=== PATIENT | male | born 1965 | race Caucasian/White ===

== ENCOUNTER 2016-08-02 11:33 | Emergency (ER) | payer OTHER ==
[~2016-08-02] VITALS: Ht 180.3 cm; Wt 113.6 kg
[~2016-08-02 11:33] MED LIST: DONNATAL 10 ML10 ML PO; FLAGYL500 MG PO; IMODIUM A-D2 M1 PO; LEVAQUIN 5500 MG/TA1 PO; LISINOPRIL; PRINIVIL10 MG PO; ST. JOSEPH81 M1 PO; ULTRAM 50MG TAB50 MG PO; ZARTAN500 MG PO; ZOCOR 20MG20 MG PO; ZOCOR5 MG PO; ZOFRAN4 M1 PO
[2016-08-02 11:34] VITALS: BP 127/81; TEMP 98.1
[2016-08-02] MEDS ORDERED: NATURAL ODORLE400 MG PO (11:37)
[2016-08-02 12:20] LABS: BASO # 0.1 (0.0-0.2); BASO % 0.6 % (0.0-2.0); EOS # 0.2 (0.0-0.7); EOS % 1.8 % (0-4.0); GRAN # 5.7 (1.4-6.5); GRAN % 59.5 % (42.2-75.2); HEMATOCRIT 44.9 % (42.0-52.0); HEMOGLOBIN 15.1 g/dl (13.5-18.0); LYMPH # 2.7 (1.2-3.4); LYMPH % 27.9 % (20.0-51.0); MEAN CELL VOLUME 92 fl (80.0-100.0); MEAN CORPUSCULAR HEMOGLOBIN 31 pg (27.0-31.0); MEAN CORPUSCULAR HGB CONC 34 g/dl (33.0-37.0); MONO # 0.9 (0.1-0.6); MONO % 9.8 % (1.7-9.3); PLATELET COUNT 177 K/mm3 (130-400); REDCELL DISTRIBUTION WIDTH-CV 13.2 % (11.5-14.5); WHITE BLOOD COUNT 9.5 K/mm3 (4.8-10.8)
[2016-08-02 12:30] LABS: ADJUSTED CALCIUM 9.2 mg/dL (8.4-10.2); ALBUMIN 4.5 gm/dL (3.5-5.0); BILIRUBIN,TOTAL 0.7 mg/dL (0.0-1.0); CALCIUM 9.6 mg/dL (8.4-10.2); CREATININE, serum 1.17 mg/dL (0.66-1.25); POTASSIUM 4.2 mmol/L (3.4-5.0); TOTAL PROTEIN 7.6 gm/dL (6.4-8.2)
[2016-08-02 12:47] LABS: PARTIAL THROMBOPLASTIN TIME 35.7 SECONDS (26.0-37.0)
[2016-08-02 13:00] VITALS: PULSE 88
== END 2016-08-02 14:21 | disposition home or self-care (01) ==
LOC: COL.ER 11:33
PROVIDERS: Emergency Medicine
DX: K92.2 Gastrointestinal hemorrhage, unspecified (principal); I10 Essential (primary) hypertension; F17.210 Nicotine dependence, cigarettes, uncomplicated

== ENCOUNTER → 2017-08-22 | Outpatient (CLI) | payer OTHER ==
[~2017-08-22] MED LIST changes: +NATURAL ODORLE400 MG PO
== END ==
LOC: COL.RAD 07:50
DX: K85.90 Acute pancreatitis without necrosis or infection, unspecified (principal); R74.8 Abnormal levels of other serum enzymes; K63.5 Polyp of colon; R07.89 Other chest pain
CPT/HCPCS: A9537

== ENCOUNTER 2019-10-01 07:18 | Emergency (ER) | payer OTHER ==
[~2019-10-01] VITALS: Ht 180.3 cm; Wt 113.6 kg
[2019-10-01 07:21] VITALS: TEMP 97.6
[2019-10-01] MEDS ORDERED: GLUCOPHAGE500 MG/TAB PO (07:26)
[2019-10-01] MEDS ORDERED: AMOXICILLIN 8751 TAB PO (07:44)
[2019-10-01 07:58] LABS: BASO # 0.1 (0.0-0.2); BASO % 0.4 % (0.0-2.0); EOS # 0.2 (0.0-0.7); EOS % 1.3 % (0-4.0); GRAN # 7.9 (1.4-6.5); GRAN % 69.5 % (42.2-75.2); HEMATOCRIT 45.3 % (42.0-52.0); HEMOGLOBIN 14.9 g/dl (13.5-18.0); LYMPH # 2.3 (1.2-3.4); LYMPH % 19.9 % (20.0-51.0); MEAN CELL VOLUME 94 fl (80.0-100.0); MEAN CORPUSCULAR HEMOGLOBIN 31 pg (27.0-31.0); MEAN CORPUSCULAR HGB CONC 33 g/dl (33.0-37.0); MEAN PLATELET VOLUME 11.3 fl (7.4-10.4); MONO % 8.6 % (1.7-9.3); PLATELET COUNT 163 K/mm3 (130-400); REDCELL DISTRIBUTION WIDTH-CV 13.2 % (11.5-14.5)
[2019-10-01 08:04] LABS: ALBUMIN 4.5 gm/dL (3.5-5.0); BILIRUBIN,TOTAL 0.5 mg/dL (0.0-1.0); C-REACTIVE PROTEIN 1.2 mg/dL (0.0-0.9); CALCIUM 9.7 mg/dL (8.4-10.2); CREATININE, serum 1.16 (0.66-1.25); POTASSIUM 4.5 mmol/L (3.4-5.0); TOTAL PROTEIN 7.7 gm/dL (6.4-8.2)
[2019-10-01 08:40] VITALS: BP 109/75; PULSE 72
== END 2019-10-01 09:13 | disposition home or self-care (01) ==
LOC: COL.ER 07:18
PROVIDERS: Emergency Medicine
DX: R10.31 Right lower quadrant pain (principal); R10.32 Left lower quadrant pain; I10 Essential (primary) hypertension; E78.5 Hyperlipidemia, unspecified; F17.210 Nicotine dependence, cigarettes, uncomplicated; Z79.84 Long term (current) use of oral hypoglycemic drugs
CPT/HCPCS: J2543

== ENCOUNTER 2020-03-03 11:45 | Emergency (ER) | payer OTHER ==
[~2020-03-03] VITALS: Ht 180.3 cm; Wt 113.6 kg
[~2020-03-03 11:45] MED LIST changes: +AMOXICILLIN 8751 TAB PO; +GLUCOPHAGE500 MG/TAB PO
[2020-03-03 11:58] VITALS: TEMP 98
[2020-03-03] MEDS ORDERED: ADVIL200 MG PO (12:07)
[2020-03-03] MEDS ORDERED: TOPROL XL 25MG25 MG (12:08)
[2020-03-03 12:34] VITALS: BP 125/59; PULSE 62
== END 2020-03-03 12:35 | disposition home or self-care (01) ==
LOC: COL.ER 11:45
DX: S05.01XA Injury of conjunctiva and corneal abrasion without foreign body, right eye, initial encounter (principal); F17.200 Nicotine dependence, unspecified, uncomplicated; Z79.84 Long term (current) use of oral hypoglycemic drugs; X58.XXXA Exposure to other specified factors, initial encounter; Y23 Rifle, shotgun and larger firearm discharge, undetermined intent

== ENCOUNTER 2020-03-16 07:46 | Day surgery (SDC) | payer OTHER ==
[~2020-03-16] VITALS: Ht 180.3 cm; Wt 114.7 kg
[2020-03-16] VITALS (254 sets, daily range): BP systolic 99–140; BP diastolic 64–96; PULSE 55–72; TEMP 98–98.6; O2SAT 93–100
[~2020-03-16 07:46] MED LIST changes: +ADVIL200 MG PO; -PRINIVIL10 MG PO; +PRINIVIL20 MG PO; +TOPROL XL 25MG25 MG PO
[2020-03-16] MEDS ORDERED: ASPIRIN E.C. 8181 MG PO (08:57)
[2020-03-16] MEDS ORDERED: OSTEO-BI-FLEX 21 TAB PO (08:58)
[2020-03-16] MEDS ORDERED: NITROSTAT0.4 MG/TAB SL (08:59)
[2020-03-16 09:40] LABS: HEMATOCRIT 44.5 % (42.0-52.0); HEMOGLOBIN 14.5 g/dl (13.5-18.0); MEAN CELL VOLUME 93 fl (80.0-100.0); MEAN CORPUSCULAR HEMOGLOBIN 30 pg (27.0-31.0); MEAN CORPUSCULAR HGB CONC 33 g/dl (33.0-37.0); MEAN PLATELET VOLUME 10.7 fl (7.4-10.4); PLATELET COUNT 186 K/mm3 (130-400); REDCELL DISTRIBUTION WIDTH-CV 13.3 % (11.5-14.5)
[2020-03-16 09:44] LABS: PROTHROMBIN TIME 11.4 SECONDS (9.7-12.8)
[2020-03-16 09:47] LABS: PARTIAL THROMBOPLASTIN TIME 34.3 SECONDS (26.0-37.0)
--- NOTE | 2020-03-16 10:29 | NUR ---
SEE MERGE DOCUMENTATION FOR MEDICATION ADMINISTRATION AND INTRA/POST PROCEDURE SEDATION ASSESSMETNS.
[2020-03-16 10:53] LABS: CALCIUM 9.2 mg/dL (8.4-10.2); CREATININE, serum 1.19 (0.66-1.25); POTASSIUM 4.6 mmol/L (3.4-5.0)
--- NOTE | 2020-03-16 12:05 | NUR ---
Pt reports chest pain he was experiencing during cath procedure is improving. Now rates pain at 2/10. Tele box has been applied as monitor in room will not carry over to telephone information supervisor desk. Pt speaking with his on the phone. Call light in reach.
--- NOTE | 2020-03-16 12:45 | NUR ---
Bruising noted proximal to TR band with c/o from pt of area feeling tight. Manual pressure held to area, and Marely clinical laboratory technician RN in to evaluate area. With manual pressure area remains soft to palpation. Will continue to monitor closely. No further c/o chest pain from pt.
--- NOTE | 2020-03-16 14:50 | NUR ---
Pt c/o increased pain to rt wrist proximal to TR band. Site remains soft to palpation. Bruising is noted, but is unchanged since pt's return from manager lab. [employer] farm laborer staff KEELEY Yap and martha Blackburn in room to evaluate. 2ml of air is removed from band, and pt reports relief. Bruising outlines marked. Pt denies further needs.
--- NOTE | 2020-03-16 15:50 | NUR ---
Report given to KEELEY Duran. Pt taken with personal belongings to ICU 8.
--- NOTE | 2020-03-16 20:00 | NUR ---
Assessment complete. Pt is AXO X3, denies having any pain at this time. Breathing is even and unlabored on room air. LA IV flushes easily and remains free of complications. R radial heart cath site has TR band deflated but still in place. Bruising noted to site with old hematoma outlined. Site is now soft and does not appear to have any growth noted. Pt assisted to the restroom and back to bed at this time and he denies further needs. Call light within reach, will continue to monitor.
[2020-03-17] VITALS (308 sets, daily range): BP systolic 85–122; BP diastolic 59–83; PULSE 55–69; TEMP 97.7–98.7; O2SAT 93–100
[2020-03-17 05:03] LABS: BASO # 0.1 (0.0-0.2); BASO % 0.6 % (0.0-2.0); EOS # 0.1 (0.0-0.7); EOS % 1.6 % (0-4.0); GRAN % 66.9 % (42.2-75.2); HEMATOCRIT 43.7 % (42.0-52.0); HEMOGLOBIN 14.4 g/dl (13.5-18.0); LYMPH # 1.8 (1.2-3.4); LYMPH % 20.7 % (20.0-51.0); MEAN CELL VOLUME 92 fl (80.0-100.0); MEAN CORPUSCULAR HEMOGLOBIN 30 pg (27.0-31.0); MEAN CORPUSCULAR HGB CONC 33 g/dl (33.0-37.0); MEAN PLATELET VOLUME 10.4 fl (7.4-10.4); MONO # 0.9 (0.1-0.6); MONO % 9.8 % (1.7-9.3); PLATELET COUNT 173 K/mm3 (130-400); RED BLOOD COUNT 4.76 M/mm3 (4.20-5.60); REDCELL DISTRIBUTION WIDTH-CV 13.4 % (11.5-14.5)
[2020-03-17 05:13] LABS: CALCIUM 9.3 mg/dL (8.4-10.2); CREATININE, serum 1.1 (0.66-1.25); POTASSIUM 4.2 mmol/L (3.4-5.0)
[2020-03-17] MEDS ORDERED: BRILINTA90 MG PO (09:24)
[2020-03-17] MEDS ORDERED: LIPITOR 80MG80 MG PO (09:24)
--- NOTE | 2020-03-17 10:51 | NUR ---
PT ALERT/ORIENTED X4. DENIES CP THIS MORNING. PT GIVEN DISCHARGE INSTRUCTIONS. VERBALIZES UNDERSTANDING. DENIES FURTHER QUESTIONS. PT GIVEN FOLLOW UP INFORMATION AND INSTRUCTED TO [facility] PRESCRIPTIONS FROM [facility] IN [place]. VSS. IV REMOVED. PT AMBULATES WITH STEADY GAIT TO EMERGENCY ENTRANCE. REFUSES W/C. ESCORTED PT TO EMERGENCY ENTRANCE. PT'S AT ENTRANCE TO TRANSPORT HOME.
== END 2020-03-17 10:50 | disposition home or self-care (01) ==
LOC: COL.CAR 07:46 → ICU 16:38 → COL.CAR 03-17 10:50
PROVIDERS: Internal Medicine Cardiovascular Disease
DX: I25.110 Atherosclerotic heart disease of native coronary artery with unstable angina pectoris (principal); Z95.5 Presence of coronary angioplasty implant and graft; E78.5 Hyperlipidemia, unspecified; I10 Essential (primary) hypertension; F17.210 Nicotine dependence, cigarettes, uncomplicated; E11.9 Type 2 diabetes mellitus without complications; Z79.82 Long term (current) use of aspirin; Z79.84 Long term (current) use of oral hypoglycemic drugs
CPT/HCPCS: OP; C1725; C1769; C1874; C1887; C9600; J0583; J1644; J2250; J3010

== ENCOUNTER 2020-05-24 17:21 | Outpatient (RCR) | payer OTHER ==
[~2020-05-24 17:21] MED LIST changes: +ASPIRIN E.C. 8181 MG PO; +BRILINTA90 MG PO; +LIPITOR 80MG80 MG PO; +NITROSTAT0.4 MG/TAB SL; +OSTEO-BI-FLEX 21 TAB PO
== END 2020-05-31 06:06 | disposition home or self-care (01) ==
LOC: COL.CR 17:21
DX: Z48.812 Encounter for surgical aftercare following surgery on the circulatory system (principal); Z95.5 Presence of coronary angioplasty implant and graft

== ENCOUNTER 2020-12-16 15:42 | Emergency (ER) | payer OTHER ==
[~2020-12-16] VITALS: Ht 180.3 cm; Wt 113.6 kg
[2020-12-16 15:52] VITALS: TEMP 98
[2020-12-16 16:32] LABS: BASO # 0.1 K/mm3 (0.0-0.2); BASO % 0.7 % (0.0-2.0); EOS # 0.1 K/mm3 (0.0-0.7); EOS % 1.5 % (0-4.0); GRAN # 5.1 K/mm3 (1.4-6.5); GRAN % 60.5 % (42.2-75.2); HEMATOCRIT 44.2 % (42.0-52.0); HEMOGLOBIN 14.5 g/dl (13.5-18.0); LYMPH # 2.1 K/mm3 (1.2-3.4); LYMPH % 25.3 % (20.0-51.0); MEAN CELL VOLUME 93 fl (80.0-100.0); MEAN CORPUSCULAR HEMOGLOBIN 31 pg (27.0-31.0); MEAN CORPUSCULAR HGB CONC 33 g/dl (33.0-37.0); MEAN PLATELET VOLUME 10.5 fl (7.4-10.4); MONO % 11.6 % (1.7-9.3); PLATELET COUNT 186 K/mm3 (130-400); RED BLOOD COUNT 4.74 M/mm3 (4.20-5.60); REDCELL DISTRIBUTION WIDTH-CV 12.9 % (11.5-14.5)
[2020-12-16 16:35] LABS: COLLECTION METHOD CLEAN CATCH
[2020-12-16 16:43] LABS: PH 5 (5-8); SQUAMOUS EPITHELIAL 0-2 /hpf; URINE APPEARANCE Clear; URINE BACTERIA None Seen /hpf; URINE BILIRUBIN Negative (NEGATIVE); URINE BLOOD Negative (NEGATIVE); URINE COLOR Yellow; URINE GLUCOSE Negative (NEGATIVE); URINE KETONE Negative (NEGATIVE); URINE LEUKOCYTE ESTERASE Negative (NEGATIVE); URINE NITRATE Negative (NEGATIVE); URINE PROTEIN(semi-quant) Negative (NEGATIVE); URINE RBC 0-2 /hpf; URINE UROBILINOGEN Negative (NEGATIVE)
[2020-12-16 16:50] LABS: BILIRUBIN,TOTAL 0.4 mg/dL (0.2-1.2); C-REACTIVE PROTEIN 0.1 mg/dL (0.00-0.50); CALCIUM 9.7 mg/dL (8.4-10.2); CREATININE, serum 1.24 mg/dL (0.72-1.25); POTASSIUM 4.4 mmol/L (3.5-4.5); TOTAL PROTEIN 7.1 gm/dL (6.2-8.1)
[2020-12-16] MEDS ORDERED: FLAGYL500 MG PO (17:16)
[2020-12-16] MEDS ORDERED: CIPRO 500MG TA500 MG PO (17:16)
[2020-12-16 17:36] VITALS: BP 127/82; PULSE 56
== END 2020-12-16 17:37 | disposition home or self-care (01) ==
LOC: COL.ER 15:42
PROVIDERS: Nurse Practitioner
DX: K57.92 Diverticulitis of intestine, part unspecified, without perforation or abscess without bleeding (principal); I25.2 Old myocardial infarction; Z79.82 Long term (current) use of aspirin

== ENCOUNTER 2023-12-17 15:05 | Emergency (ER) | payer OTHER ==
[~2023-12-17] VITALS: Ht 180.3 cm; Wt 109.1 kg
[~2023-12-17 15:05] MED LIST changes: +CEPHALEXIN500 M1 PO; +CIPRO 500MG TA500 MG PO
[2023-12-17 15:14] VITALS: TEMP 97.7
[2023-12-17 17:56] LABS: BASO # 0.1 K/mm3 (0.0-0.2); BASO % 0.6 % (0.0-2.0); EOS # 0.2 K/mm3 (0.0-0.7); EOS % 2.8 % (0.0-4.0); GRAN # 4.6 K/mm3 (1.4-6.5); GRAN % 57.8 % (42.2-75.2); HEMATOCRIT 42.2 % (42.0-52.0); HEMOGLOBIN 14.1 g/dl (13.5-18.0); LYMPH # 2.3 K/mm3 (1.2-3.4); LYMPH % 29.3 % (20.0-51.0); MEAN CELL VOLUME 94 fl (80.0-100.0); MEAN CORPUSCULAR HEMOGLOBIN 31 pg (27-31); MEAN CORPUSCULAR HGB CONC 33 g/dl (33.0-37.0); MEAN PLATELET VOLUME 10.8 fl (7.4-10.4); MONO # 0.7 K/mm3 (0.1-0.6); MONO % 9.1 % (1.7-9.3); PLATELET COUNT 195 K/mm3 (130-400); RED BLOOD COUNT 4.51 M/mm3 (4.20-5.60); REDCELL DISTRIBUTION WIDTH-CV 13.1 % (11.5-14.5)
[2023-12-17 18:19] LABS: ALBUMIN 4.2 g/dL (3.5-5.0); BILIRUBIN,TOTAL 0.4 mg/dL (0.2-1.2); C-REACTIVE PROTEIN 0.18 mg/dL (0.00-0.50); CALCIUM 9.8 mg/dL (8.4-10.2); CREATININE, serum 1.24 mg/dL (0.72-1.25); TOTAL PROTEIN 7.4 g/dl (6.2-8.1)
[2023-12-17] MEDS ORDERED: Iohexol 300 - 100 ML VIAL IV ONE (18:41)
[2023-12-17] MEDS ORDERED: Acetaminophen 500 MG TAB PO ONE (19:15)
[2023-12-17 20:20] VITALS: BP 151/107; PULSE 60
== END 2023-12-17 20:24 | disposition home or self-care (01) ==
LOC: COL.ER 15:05
PROVIDERS: Nurse Practitioner
DX: R10.12 Left upper quadrant pain (principal); R10.32 Left lower quadrant pain; Z87.19 Personal history of other diseases of the digestive system; Z87.891 Personal history of nicotine dependence
CPT/HCPCS: Q9967